=== PATIENT | female | born 1960 | race Caucasian/White ===

== ENCOUNTER → 2021-05-05 | Outpatient (CLI) | payer BC ==
--- NOTE | 2021-05-06 06:34 | MR ---
EXAMINATION TYPE: MR knee LT wo con DATE OF EXAM: 05/05/2021 COMPARISON: Outside left knee x-ray April 02, 2021 HISTORY: Left knee pain x 2 mos, no trauma. TECHNIQUE: Multiplanar, multisequence imaging of the left knee is performed without IV contrast. FINDINGS: MEDIAL MENISCUS: Medial extrusion medial meniscus on coronal images. Posterior horn has increased sig nal predominantly oblique in orientation, extends to the inferior articular surface, there is fraying along the articular surface. Findings consistent with full thickness tearing. LATERAL MENISCUS: Anterior and posterior horns are intact without tear. CRUCIATE LIGAMENTS: The anterior and posterior cruciate ligaments are intact and unremarkable. COLLATERAL LIGAMENTS: The medial collateral ligament and lateral collateral ligament complex are inta ct. Mild fluid signal surrounds the medial collateral ligament particularly superficial aspect. EXTENSOR MECHANISM: Visualized quadriceps and patellar tendons are intact. EFFUSION: Moderate size suprapatellar joint effusion. POPLITEAL CYST: Large multi septated popliteal/Brewer's cyst with surrounding fluid. Increased signal in distal semimembranosus muscle insertion at the posterior proximal tibial insertion. TRICOMPARTMENT SPACES: Mild to moderate tricompartment joint space loss. Mild tricompartmental joint space spurring CARTILAGE: Chondromalacia patella with some cartilaginous loss and fissuring along the superior aspec t of the patellar pole. There is cartilaginous loss medial tibiofemoral compartment. BONE MARROW SIGNAL: No focal abnormal marrow signal is appreciated. OTHER: No additional significant abnormality is appreciated. IMPRESSION: 1. Full-thickness tear posterior horn medial meniscus. 2. Mild MCL sprain injury. 3. Moderate tricompartment degenerative changes as detailed above. 4. Large multi septated leaking Brewer's cyst with partial tearing/tendinosis at the distal insertion of the semimembranosus muscle. 5. Moderate-sized suprapatellar joint effusion.
== END | disposition home or self-care (01) ==
LOC: RADMRIMAIN 18:54
PROVIDERS: ATTEND Orthopaedic Surgery
DX: M25.462 Effusion, left knee (principal); M71.22 Synovial cyst of popliteal space [Baker], left knee; S83.412A Sprain of medial collateral ligament of left knee, initial encounter; M23.322 Other meniscus derangements, posterior horn of medial meniscus, left knee; X58.XXXA Exposure to other specified factors, initial encounter

== ENCOUNTER 2021-05-30 10:08 | Day surgery (SDC) | payer BC ==
[2021-05-29 08:12] VITALS: BMI 40.8
--- NOTE | 2021-05-29 13:22 | HP ---
HISTORY AND PHYSICAL CHIEF COMPLAINT: Left knee pain. HISTORY OF PRESENT ILLNESS: The patient is a 61-year-old retired female who presents with progressive left knee pain after an injury in March of this year. She was scraping floors when she developed pain when she got up. She is having swelling, stiffness and giving way ever since. She has tried medications in addition to an injection, without much relief. PAST MEDICAL HISTORY: Negative. PAST SURGICAL HISTORY: Significant for right knee arthroscopy, skin cancer removal and left shoulder surgery. CURRENT MEDICATIONS: Advil. ALLERGIES: IODINE AND LATEX. FAMILY HISTORY: Significant for heart disease and cancer. SOCIAL HISTORY: Negative for current tobacco or alcohol use. REVIEW OF SYSTEMS: Sixteen-point review of systems otherwise reviewed and is noncontributory. PHYSICAL EXAMINATION: On examination, the patient is approximately 5 feet 5 inches, 250 pounds of endomorphic habitus. HEENT exam is nonfocal. Neck is supple. She has painless passive motion of the left hip. Straight-leg raise is negative. Active motion of left knee: Minus 10 to 110 degrees of flexion. She has a trace effusion. She is tender about the medial and lateral joint lines. Collaterals are stable. Lien is negative. Sanchez's elicits medial and lateral pain. Her distal neurovascular exam appears intact in the left lower extremity. MRI report 05/05/2021 shows evidence of a posterior medial meniscal tear and large posterior medial Brewer cyst. IMPRESSION: 1. Left knee symptomatic medial meniscal tear. 2. Obesity. RECOMMENDATIONS: I talked to the patient at length regarding her condition along with treatment options. At this point she is quite limited, having pain and mechanical symptoms after this acute injury. After thorough discussion, she has opted to proceed with surgery. We will plan to proceed with arthroscopic evaluation with probable partial medial meniscectomy. Risks and benefits were discussed at length in layman's terms. We will likely perform that as an outpatient procedure. MMODL / IJN: [id number] /
[~2021-05-30 10:08] MED LIST: DEXAMETHASONE SOD PHOSPHATE 4 MG/ML 1 ML VIAL IV ONE; LACTATED RINGERS 1,000 ML IV SCH; MIDAZOLAM 2 MG/2 ML VIAL IV PRN; ONDANSETRON 4 MG/2 ML VIAL IVP ONE; SCOPOLAMINE 1 MG/72 HR PATCH TRANSDERM ONE
[2021-05-30 11:13] VITALS: TEMP 98
[2021-05-30 11:17] LABS: Glucose,Whole Blood 87 mg/dL (75-99)
[2021-05-30] MEDS ORDERED: MIDAZOLAM 2 MG/2 ML VIAL ONE (11:55)
[2021-05-30] MEDS ORDERED: EPINEPHrine (PF) 1 ML in SODIUM CHLORIDE 0.9% IRRIGATIO 3,000 ML IRRIGATION ONE ×4 (11:55)
[2021-05-30] MEDS ORDERED: LIDOCAINE 1% INJ 10MG/ML (20 ML MDV) ONE (11:55)
[2021-05-30] MEDS ORDERED: fentaNYL (PF) 50 MCG/ML 2 ML AMP ONE (11:55)
[2021-05-30] MEDS ORDERED: PROPOFOL 10 MG/ML 20 ML VIAL IV ONE (11:55)
[2021-05-30] MEDS ORDERED: KETOROLAC 15 MG/ML 1 ML VIAL ONE (11:55)
--- NOTE | 2021-05-30 12:42 | P.OP ---
Date of Procedure: 05/30/21 Preoperative Diagnosis: Left knee internal derangement Postoperative Diagnosis: Left knee posterior medial meniscal tear Procedure(s) Performed: Left knee arthroscopic partial medial meniscectomy Anesthesia: TRICIAA Surgeon: Ren Ayala Estimated Blood Loss (ml): 10 Pathology: none sent Condition: stable Disposition: PACU Indications for Procedure: The patient's a 61-year-old female presents with progressive left knee pain and mechanical symptoms after a recent injury. A discussion of the risks and benefits of operative intervention versus continued conservative measures was made with patient. She opted to proceed with surgery. Operative risks to include infection, neurovascular injury, development of blood clots, possible incomplete resolution of symptoms, possible worsening symptoms and need for subsequent procedures was discussed. Informed consent was obtained. Operative Findings: As below Description of Procedure: The patient was brought to the operating room, and after induction of general anesthesia examined the left knee. Collaterals were stable, Lien was negative, and posterior drawer was negative. The left lower extremity was prepped and draped in a normal fashion. A superior lateral portal was made through a 3 mm skin incision superior and lateral to the patella. This was used for outflow. A lateral portal was made through a 5 mm vertical skin incision lateral to the patella tendon above the joint line. Diagnostic arthroscopy was performed. On inspection of the medial compartment, a complex tear involving the posterior horn of the medial meniscus in the white-red junction was noted. This was debrided back to stable base with straight baskets and a motorized shaver. Grade 2 chondral changes was noted diffusely in the medial compartment. On inspection of the notch, the anterior cruciate ligament appeared to be intact. On inspection of the lateral compartment, no significant meniscal pathology was noted. On inspection of the patellofemoral articulation, there was chondral fibrillation however no loose chondral fragments. The gutters were clear debris. The knee was then thoroughly irrigated. The portals were closed with Steri-Strips. A sterile dressing was applied in addition to a compression stocking. The patient was awoken from general anesthesia and transferred to recovery room in good condition. Blood loss was estimated at 10 mL. No complications were incurred.
[2021-05-30] MEDS: HYDROmorphone 0.5 MG/0.5 ML SYRINGE IVP PRN ×2 (12:57→13:06)
[2021-05-30 13:33] VITALS: RESP 16
[2021-05-30] MEDS ORDERED: HYDROcodone/APAP 5-325MG 1 EACH TAB PO ONE (13:54)
[2021-05-30] MEDS ORDERED: HYDROcodone/APAP 5-325MG 1 EACH TAB ONE (13:54)
[2021-05-30 14:25] VITALS: BP 131/81; PULSE 70
== END 2021-05-30 14:44 | disposition home or self-care (01) ==
LOC: OR 10:08
PROVIDERS: ATTEND Orthopaedic Surgery
DX: S83.232A Complex tear of medial meniscus, current injury, left knee, initial encounter (principal); M71.22 Synovial cyst of popliteal space [Baker], left knee; E66.9 Obesity, unspecified; X50.9XXA Other and unspecified overexertion or strenuous movements or postures, initial encounter; Z68.41 Body mass index [BMI] 40.0-44.9, adult; Z85.828 Personal history of other malignant neoplasm of skin; Z98.890 Other specified postprocedural states; Z79.899 Other long term (current) drug therapy; Z91.040 Latex allergy status; Z91.048 Other nonmedicinal substance allergy status; Z82.49 Family history of ischemic heart disease and other diseases of the circulatory system; Z80.9 Family history of malignant neoplasm, unspecified
CPT/HCPCS: 29881; J2250; J1100; J0690; J2405; J0171; J2001; J3010; J1885; J2704; J1170

== ENCOUNTER → 2021-11-28 | Outpatient (CLI) | payer BC ==
[2021-11-28 18:32] LABS: HCT 44.1 % (37.2-46.3); HGB 14.1 g/dL (12.0-15.0); MCH 28.5 pg (27.0-32.0); MCV 89.3 fL (80.0-97.0); NRBC Per 100 WBC 0 /100 WBCS (0.0-0.0); Platelet Count 368 X 10*3/uL (140-440); RBC 4.94 X 10*6/uL (4.10-5.20); WBC 7.44 X 10*3/uL (4.50-10.00)
[2021-11-28 19:15] LABS: ALT 19 U/L (8-44); AST 16 U/L (13-35); African American GFR (CKD) 92.2 (60.0-200.0); Albumin 4.4 g/dL (3.8-4.9); Alkaline Phosphatase 119 U/L (41-126); BUN/Creat Ratio 19.63 Ratio (12.00-20.00); Blood Urea Nitrogen 15.7 mg/dL (9.0-27.0); Calcium 9.2 mg/dL (8.7-10.3); Carbon Dioxide 27.1 mmol/L (20.0-27.5); Chloride 103 mmol/L (96-109); Glucose 120 mg/dL (70-110); Lipase 49 U/L (14-63); Non-African American GFR(CKD) 79.6 (60.0-200.0); Sodium 141 mmol/L (135-145); Total Protein 6.4 g/dL (6.2-8.2)
[2021-11-28 19:48] LABS: Gliadin AB IgA, Deaminated NEGATIVE (NEGATIVE); Gliadin AB IgA, Unit <0.2 U/mL; Gliadin AB IgG, Deaminated NEGATIVE (NEGATIVE); Gliadin AB IgG, Unit <0.4 U/mL
== END | disposition home or self-care (01) ==
LOC: LABWHC1 12:53
DX: R19.7 Diarrhea, unspecified (principal)
CPT/HCPCS: 36415; 80053; 83516; 83690; 84443; 84481; 85027

== ENCOUNTER → 2022-07-20 | Outpatient (CLI) | payer BC ==
[2022-07-20 19:57] LABS: Basophils # (A) 0.06 X 10*3/uL; Basophils % (A) 0.9 %; Eosinophils # (A) 0.24 X 10*3/uL; Eosinophils % (A) 3.7 %; HCT 41.4 %; HGB 13.2 d/dL; Lymphocytes # (A) 1.68 X 10*3/uL; Lymphocytes % (A) 25.6 %; MCH 28.5 pg; MCHC 31.9 d/dL; MCV 89.4 FL; Mean Platelet Volume 10.1 FL; Monocytes # (A) 0.56 X 10*3/uL; Monocytes % (A) 8.5 %; NRBC Per 100 WBC 0 X 10*3/uL; Neutrophils # (A) 3.99 X 10*3/uL; Neutrophils % (A) 60.8 %; Platelet Count 372 X 10*3/uL; RBC 4.63 X 10*6/uL; RDW 12.1 %; WBC 6.56 X 10*3/uL
[2022-07-20 21:11] LABS: ALT 21 U/L; AST 21 U/L; Albumin 4.2 d/dL; Albumin/Globulin Ratio 2.33 Ratio; Alkaline Phosphatase 104 U/L; Blood Urea Nitrogen 17.1 mg/dL; Carbon Dioxide 26.8 mmol/L; Chloride 106 mmol/L; Globulin 1.8 d/dL; Glucose 92 mg/dL; Lipase 34 U/L; Potassium 4.9 mmol/L; Sodium 139 mmol/L; Total Bilirubin 0.4 mg/dL
[2022-07-20 21:33] LABS: % Iron Saturation 16.01; C Reactive Protein <0.30 mg/dL; Iron 57 UG/DL; Total Iron Binding Capacity 356 UG/DL
[2022-07-21 01:01] LABS: Ferritin 52 ng/mL
== END | disposition home or self-care (01) ==
LOC: LABWHC1 11:59
PROVIDERS: ATTEND Internal Medicine
DX: K52.9 Noninfective gastroenteritis and colitis, unspecified (principal)
CPT/HCPCS: 36415; 80053; 82652; 82728; 82746; 83516; 83540; 83550; 83690; 84443; 85025; 86140

== ENCOUNTER → 2023-09-14 | Outpatient (CLI) | payer BC ==
--- NOTE | 2023-09-14 18:47 | CT ---
EXAMINATION TYPE: CT sinus wo con DATE OF EXAM: 09/14/2023 COMPARISON: None HISTORY: 62-year-old female J32.9, unspecified chronic sinusitis CT DLP: 476 mGycm Automated exposure control for dose reduction was used. TECHNIQUE: Noncontrast axial views of the paranasal sinuses were obtained. Coronal reconstructions pe rformed. FINDINGS: PARANASAL SINUSES: The frontal, ethmoid, maxillary and sphenoid sinuses are clear and well pneumatized. There is no mucosal thickening or air-fluid level. Reactive jaylen- osteogenesis is not seen. There is no destruction of the osseous arriola of the paranasal sinuses. THE NASAL CAVITY: The osteomeatal complexes are patent. The nasal septum is not significantly deviated. The imaged brain and orbits are normal in appearance. Mastoid air cells and middle ear cavities are well pneumatized. Reformatted images confirm above findings. IMPRESSION: No significant paranasal sinus disease appreciated.
== END | disposition home or self-care (01) ==
LOC: RADCTMAIN 14:54
PROVIDERS: ATTEND Otolaryngology
DX: J32.0 Chronic maxillary sinusitis (principal)
CPT/HCPCS: 70486